=== PATIENT | female | born 1980 | race Caucasian/White ===

== ENCOUNTER → 2021-01-06 | Outpatient (CLI) | payer SELFPAY | LOC: COL.RAD 09:51 | DX: K21.9 Gastro-esophageal reflux disease without esophagitis (principal) | CPT/HCPCS: A9537 ==

== ENCOUNTER → 2021-06-18 | Outpatient (CLI) | payer SELFPAY | LOC: COL.RAD 08:26 | DX: S43.431A Superior glenoid labrum lesion of right shoulder, initial encounter (principal); W19.XXXA Unspecified fall, initial encounter | CPT/HCPCS: A9585; Q9967 ==